=== PATIENT | female | born 1965 | race Caucasian/White ===

== ENCOUNTER 2023-03-23 15:58 | Outpatient (CLI) | payer BC, SELFPAY ==
[2023-03-23 17:19] LABS: HIV 1/2 Ab P24 Ag Result Negative (Negative)
[2023-03-23 18:59] LABS: Hepatitis B Surface Antigen Negative (Negative)
[2023-03-23 19:05] LABS: HAV RESULT Negative (Negative); Hepatitis B Core IgM Result Negative (Negative)
[2023-03-23 19:17] LABS: Hepatitis C Virus Antibody Negative (Negative)
[2023-03-24 14:26] LABS: Rapid Plasma Reagin Non-Reactive (NonReactive)
== END 2023-03-23 15:59 | disposition home or self-care (01) ==
LOC: ANHLAB 16:01
PROVIDERS: Visit Provider Student in an Organized Health Care Education/Training Program
DX: Z11.3 Encounter for screening for infections with a predominantly sexual mode of transmission (principal)
CPT/HCPCS: 36415; 80074; 86592; 86695; 86696; 86703; G0432

== ENCOUNTER 2024-01-02 19:22 | Emergency (ER) | payer BC, SELFPAY ==
--- NOTE | 2024-01-02 19:23 | ECG_ITS ---
Test Date: 2024-01-02 19:32:06 Measurements Intervals [place] Rate: 108 P: 21 SD: 112 QRS: 30 QRSD: 86 T: 4 QT: 356 QTc: 477 Interpretive Statements SINUS TACHYCARDIA WITH SHORT SD INTERVAL WITH FREQUENT VENTRICULAR PREMATURE COMPLEXES ABNORMAL RHYTHM ECG No previous ECG available for comparison Electronically Signed On 01-03-2024 13:41:48 CDT by Estrada Sevilla M.D.
[2024-01-02 19:37] VITALS: BP 122/86; PULSE 100; RESP 26; TEMP 36.4; O2SAT 100
--- NOTE | 2024-01-02 21:06 | PC.NURSE ---
Pt seen leaving ER and off property by POV @ 2034
== END 2024-01-02 21:15 | disposition left against medical advice (07) ==
DX: R07.89 Other chest pain (principal)
CPT/HCPCS: 93005; 99199